=== PATIENT | male | born 1970 | race Caucasian/White ===

== ENCOUNTER 2020-09-01 07:51 | Emergency (ER) | payer BC ==
[~2020-09-01] VITALS: Ht 182.9 cm; Wt 149.7 kg
[~2020-09-01 07:51] MED LIST: ALBU90OI61 INH; Percocet 5-3251 EACH PO; Tessalon Perle100 MG PO
[2020-09-01 08:36] LABS: BASOPHILS ABSOLUTE AUTO 0.01 K/mm3 (0.00-0.23); BASOPHILS PERCENT AUTO 0 % (0-2); EOSINOPHILS PERCENT AUTO 0 % (0-6); Hematocrit 46.2 % (37.0-53.0); Hemoglobin 15.3 g/dL (13.5-17.5); IMMATURE GRAN ABSOLUTE AUTO 0.02 K/mm3 (0.00-0.10); IMMATURE GRAN PERCENT AUTO 0 % (0-1); LYMPHOCYTES ABSOLUTE AUTO 0.77 K/mm3 (0.84-5.20); LYMPHOCYTES PERCENT AUTO 12 % (21-46); MONOCYTES ABSOLUTE AUTO 0.34 K/mm3 (0.16-1.47); MONOCYTES PERCENT AUTO 5 % (4-13); Mean Corpuscular HGB 29.9 pg (26.0-34.0); Mean Corpuscular HGB Conc 33.1 g/dL (31.5-36.5); Mean Corpuscular Volume 90 fL (80-100); NEUTROPHILS ABSOLUTE AUTO 5.49 K/mm3 (1.96-9.15); NEUTROPHILS PERCENT AUTO 83 % (41-73); Platelet Count 176 K/mm3 (150-400); RDW Coefficient Variation 12.9 % (11.7-14.2); RDW Standard Deviation 42.7 fL (35.1-46.3); Red Blood Cell Count 5.12 M/mm3 (4.30-5.90); White Blood Cell Count 6.63 K/mm3 (4.00-11.30)
[2020-09-01 08:55] LABS: Anion Gap 6 mmol/L (6-16); Blood Urea Nitrogen 10 mg/dL (8-24); Bun/Creatinine Ratio 11.4 (12.0-20.0); CO2, Blood 26 mmol/L (21-32); Calcium, Blood 8.4 mg/dL (8.5-10.1); Chloride, Blood 105 mmol/L (98-108); Creatinine, Blood 0.87 mg/dL (0.60-1.20); Glomerular Filtration Rate >60 (60-); Glucose, Blood 96 mg/dL (70-99); Potassium, Blood 3.6 mmol/L (3.5-5.5); Sodium, Blood 137 mmol/L (136-145)
[2020-09-01 09:12] LABS: Influenza A, PCR NEGATIVE (NEGATIVE); Influenza B, PCR NEGATIVE (NEGATIVE); Resp Syncytial Virus, PCR NEGATIVE (NEGATIVE)
[2020-09-01 09:13] LABS: SARS-Cov-2 (COVID-19) PCR, MMC POSITIVE (NEGATIVE)
[2020-09-01] MEDS ORDERED: LEVO750 PO (09:42)
== END 2020-09-01 09:53 | disposition home or self-care (01) ==
LOC: ER 07:51
PROVIDERS: Emergency Medicine
DX: U07.1 COVID-19 (principal); R91.8 Other nonspecific abnormal finding of lung field; I10 Essential (primary) hypertension; E78.00 Pure hypercholesterolemia, unspecified; Z79.899 Other long term (current) drug therapy
CPT/HCPCS: 0241U; 36415; 71045; 80048; 85025; 93005; 93010; 99285-25

== ENCOUNTER 2020-09-03 10:01 | Inpatient (IN) | payer BC ==
[~2020-09-03] VITALS: Ht 182.9 cm; Wt 145.1 kg
[~2020-09-03 10:01] MED LIST changes: +LEVO750 PO
[2020-09-03 11:09] LABS: BASOPHILS ABSOLUTE AUTO 0.01 K/mm3 (0.00-0.23); BASOPHILS PERCENT AUTO 0 % (0-2); EOSINOPHILS PERCENT AUTO 0 % (0-6); Hemoglobin 15.7 g/dL (13.5-17.5); IMMATURE GRAN ABSOLUTE AUTO 0.06 K/mm3 (0.00-0.10); IMMATURE GRAN PERCENT AUTO 1 % (0-1); LYMPHOCYTES ABSOLUTE AUTO 0.63 K/mm3 (0.84-5.20); LYMPHOCYTES PERCENT AUTO 7 % (21-46); MONOCYTES ABSOLUTE AUTO 0.46 K/mm3 (0.16-1.47); MONOCYTES PERCENT AUTO 5 % (4-13); Mean Corpuscular HGB 29.9 pg (26.0-34.0); Mean Corpuscular HGB Conc 33.4 g/dL (31.5-36.5); Mean Corpuscular Volume 90 fL (80-100); Mean Platelet Volume 9.6 fL (9.1-12.4); NEUTROPHILS PERCENT AUTO 86 % (41-73); Platelet Count 240 K/mm3 (150-400); RDW Coefficient Variation 12.7 % (11.7-14.2); RDW Standard Deviation 41.9 fL (35.1-46.3); Red Blood Cell Count 5.25 M/mm3 (4.30-5.90); White Blood Cell Count 8.56 K/mm3 (4.00-11.30)
[2020-09-03 11:31] LABS: Alanine Aminotransfer (ALT/SGP 168 U/L (12-78); Albumin/Globulin Ratio 0.6 (0.8-1.8); Alk Phos 141 U/L (50-136); Anion Gap 5 mmol/L (6-16); Aspartate Aminotrans (AST/SGOT 136 U/L (12-37); Bilirubin, Total 1.3 mg/dL (0.1-1.0); Blood Urea Nitrogen 16 mg/dL (8-24); Bun/Creatinine Ratio 17.2 (12.0-20.0); CO2, Blood 29 mmol/L (21-32); Calcium, Blood 8.5 mg/dL (8.5-10.1); Chloride, Blood 102 mmol/L (98-108); Creatinine, Blood 0.93 mg/dL (0.60-1.20); Globulin, Blood 5.3 g/dL (2.2-4.0); Glomerular Filtration Rate >60 (60-); Glucose, Blood 104 mg/dL (70-99); Potassium, Blood 3.6 mmol/L (3.5-5.5); Sodium, Blood 136 mmol/L (136-145); Total Protein, Blood 8.3 g/dL (6.4-8.2); Troponin I <0.015 ng/mL (0.000-0.040)
--- NOTE | 2020-09-03 14:43 | NUR ---
PT ARRIVED TO ROOM 1 VIA GURNEY FROM ER. REPORT OBTAINED, PT ABLE TO TRANSFER TO BED INDEP, A/OX3, PLEASANT AND COOPERATIVE WITH CARE, FOLLOWS COMMANDS WELL, DENIES PAIN, LUNGS ARE DIM T/O, RESP EVEN AND UNLABORED, NO COUGH NOTED, HRR, TELE IN PLACE RUNNING SR PER MONITOR, SEE STRIP, NO EDEMA NOTED, PPP+2, CAP REFILL <3SEC, VS STABLE, AFEBRILE, IV SITE IS CLEAR AND PATENT, BTX4, ABD FLAT SOFT NONTENDER, VOIDS WITHOUT DIFF, SKIN C/W/D, MAEW, NAVDEEP, ORIENTED TO ROOM LAYOUT AND CALL SYSTEM, CALL LIGHT IN REACH.
--- NOTE | 2020-09-03 19:07 | NUR ---
PT STOOD TO VOID VIA URINAL, HE CALLED NURSE IN HE IS WORKING TO BREATH AND SATS ARE 84%, TURNED O2 UP, AND OBTAINED A HIGH FLOW, TOOK A LONG TIME TO COME UP, ENDED UP ON 10 LITERS, AND LAYING ON HIS SIDE. 92% AT THIS TIME. DID CALL DR. DICK, NO NEW ORDERS, PT STATES HE'S DOING OK NOW. CALL LIGHT IN REACH.
--- NOTE | 2020-09-03 20:50 | NUR ---
CODE STATUS SPOKE W PT REGARDING CODE STATUS AND THE PT SAID HE WANTS TO BE A FULL CODE AND FAR INTUBATION PT STATED THAT "IF A TUBE DOWN MY THROAT IS WHAT IT TAKES TO SURVIVE THEN YES I WANT TO BE INTUBATED". I ASKED THE PT IF HE WANTS COMPRESSIONS, MEDS AND INTUBATION AND HE SAID "YES I WANT EVERYTHINGBUT I HOPE IT DOESNT COME TO THAT". PT'S O2 SATS AT 89 SO O2 INCREASED FROM 10 TO 12 ON THE NM AGUSTINA LORENZA,WCTM.
--- NOTE | 2020-09-04 05:06 | NUR ---
MEDICAL BILLING CLERK SUMMARY PT SLEPT PRONE FOR MOST OF THE SHIFT ON 12L HIGH FLOW NC HOWEVER AFTERTHE PT ROLLED OVER FOR THE VEGETABLE LOADER HE DECLINED INTO THE MID 80'S SO ORDER FOR AIRVO WAS OBTAINED. VS HAVE BEEN STABLE AND BP HAS BEEN GOOD DESPITE THE PT APPEARING DRY AND NOT WANTING TO DRINK ANY WATER. TELE NSR IN THE 60'S, PT AFEBRILE THIS SHIT. PT DENIED ANY PAIN OR NAUSEA THIS SHIFT. WCTM.
[2020-09-04 06:15] LABS: Hematocrit 45.9 % (37.0-53.0); Hemoglobin 15.4 g/dL (13.5-17.5); Mean Corpuscular HGB Conc 33.6 g/dL (31.5-36.5); Mean Corpuscular Volume 90 fL (80-100); Mean Platelet Volume 9.7 fL (9.1-12.4); Platelet Count 271 K/mm3 (150-400); RDW Coefficient Variation 12.7 % (11.7-14.2); RDW Standard Deviation 42.4 fL (35.1-46.3); Red Blood Cell Count 5.13 M/mm3 (4.30-5.90); White Blood Cell Count 8.95 K/mm3 (4.00-11.30)
[2020-09-04 06:39] LABS: Alanine Aminotransfer (ALT/SGP 263 U/L (12-78); Albumin, Blood 2.9 g/dL (3.4-5.0); Albumin/Globulin Ratio 0.6 (0.8-1.8); Alk Phos 163 U/L (50-136); Anion Gap 5 mmol/L (6-16); Aspartate Aminotrans (AST/SGOT 173 U/L (12-37); Bilirubin, Total 2.1 mg/dL (0.1-1.0); Blood Urea Nitrogen 17 mg/dL (8-24); Bun/Creatinine Ratio 19.4 (12.0-20.0); CO2, Blood 29 mmol/L (21-32); Calcium, Blood 8.8 mg/dL (8.5-10.1); Chloride, Blood 103 mmol/L (98-108); Creatinine, Blood 0.88 mg/dL (0.60-1.20); Globulin, Blood 5.2 g/dL (2.2-4.0); Glomerular Filtration Rate >60 (60-); Glucose, Blood 104 mg/dL (70-99); Potassium, Blood 4.1 mmol/L (3.5-5.5); Sodium, Blood 137 mmol/L (136-145); Total Protein, Blood 8.1 g/dL (6.4-8.2)
--- NOTE | 2020-09-04 08:00 | NUR ---
pt laying in bed on his back, sats are above 90%, he is laboring to breath, a/ox3, pleasant and cooperative with care, follows commands well, denies pain, just sob, states he got some sleep last night, lungs are very dim t/o, resp even and labored, is speaking in broken sentences, he is currently on airvo at 50liters, he reports an occ nonproductive cough, hrr, tele in place running sr per montior, rate in the 70's, voids dark taylor urine, skin clear, but cool to touch, maew, weak, jackie, encouraged to prone, he did eat a little breakfast, call light in reach.
--- NOTE | 2020-09-04 12:14 | NUR ---
pt proned all morning, sat him up for lunch, sats were in the high 90's while proning, dropped to the high 80's while eating, denies pain, complaints or needs, call light in reach.
--- NOTE | 2020-09-04 13:07 | NUR ---
will be moving pt to icu per Dr. Aguilar, informed pt. gave report to Ebony PENNINGTON. she will be bringing a bed to move him with.
--- NOTE | 2020-09-04 13:45 | NUR ---
TRANSFER PT FROM PCU 1. DX- COVD 19 WITH INCREASED O2 REQUIREMENTS AND INCREASED WOB. PT IS A&OX4. HE DENIES PAIN. RR 40'S AND PT USING ACCESSORY MUSCLES TO BREATH. SATS DOWN TO 85% WITH MINIMAL EXERTION. PT PLACED ON 15 LITERS NONREBREATHER FOR TRANSFER. PT STATES THAT HIS WOB IS IMPROVED SOME WITH THE MASK VS. THE AIRVO. WILL MAKE PT NPO FOR NOW DUE TO RESPIRATORY DISTRESS. DR. CONNOR UPDATED TO PT STATUS AND CURRENT VS. ORDERS GIVEN FOR BIPAP, PRECEDEX DRIP, STAT CH1V, AND BOYKIN CATHETER INSERTION.
[2020-09-04 14:13] LABS: Source, Urine Catheter
[2020-09-04 14:25] LABS: Appearance, Urine Clear (Clear); Blood, Urine Neg (Neg); Color, Urine Yellow (P-Yellow); Glucose Qualitative, Urine Neg (Neg); Ketones, Urine Neg (Neg); Leukocyte Esterase, Urine 1+ (Neg); Nitrite, Urine Neg (Neg); Protein, Urine 2+ (Neg); Specific Gravity, Urine 1.015 (1.003-1.022); Urobilinogen, Urine 3+ (Normal)
--- NOTE | 2020-09-04 14:35 | NUR ---
PT RESTING QUIETLY ON BIPAP 14/8-FIO2 70% RR RR 36 TO 40'S. SATS 94-96% PRECEDEX DRIP TITRATED UP TO 0.7 MCG/KG/MIN.
[2020-09-04 14:49] LABS: Bilirubin, Urine 1+ (Neg)
[2020-09-04 14:50] LABS: Bacteria Not Seen /hpf; Red Blood Cells, Urine 0-2 /hpf (0-2); Squamous Epithelial Cells Not Seen /hpf (Few); White Blood Cells, Urine 0-2 /hpf (0-5)
--- NOTE | 2020-09-04 15:10 | NUR ---
PT CALLED RN STATING "THIS THING IS KICKING MY ASS!" REFERRING TO BIPAP. UPON ENTRY TO ROOM. PT RESPIRATORY RATE 50'S. SBP 80'S. NS BOLUS INITIATED. PRECEDEX DRIP TO 1.4 MCG/KG/MIN. BIPAP ADJUSTED TO 10/5-TITRATED FIO2 TO 80% TO KEEP SATS >90%. MED WITH ATIVAN 2 MG IVP X [address] CONNOR AWARE. PICC LINE REQUESTED.
--- NOTE | 2020-09-04 15:40 | NUR ---
RESPIRATORY RATE 60'S. PT GRUNTING/MOANING AND USING ACCESSORY MUSCLES TO BREATHE. FIO2 TITRATED UP TO 100% TO KEEP SATS>90% PICC LINE INSERTION INITIATED.
--- NOTE | 2020-09-04 15:54 | NUR ---
PT SOMULENT. PRECEDEX TITRATED DOWN TO 0.7 MCG/KG/MIN. BIPAP 12/8 FIO2 100% RR 60'S. PT REMAINS IN SEVERE RESPIRATORY DISTRESS.
--- NOTE | 2020-09-04 18:00 | NUR ---
PICC LINE SUCCESSFULLY PLACED. DR. CONNOR SUMMONED TO BEDSIDE FOR RSI @ 1616. PT CONTINUES IN SEVERE RESPIRATORY DISTRESS. PT SOMULENT, NOT FOLLOWING COMMANDS. RR 60'S. PT WAS GIVEN A TOTAL OF 15 MG OF VERSED, 150 MG PROPOFOL IVP-FOLLOWED BY PROPOFOL DRIP@ 50 MCG/KG/MIN, AND ROCURONIUM 50 MG IVPX1 DURING RSI. 8.0 ETT PLACED 27 @ TEETH.PT BEGAN VOMITING WHEN LARYNGEAL SCOPE PLACED. YANKEUR SUCTION DONE IMMEDIATELY, BUT STILL CONCERN FOR POSSIBLE ASPIRATION. PT RESPIRATIONS NOT SYNCHRONIZED WITH VENTILATOR.(1700) NIMBEX DRIP INTIATED @ 1.5 MCG/KG/MIN TO4 4/4 PRIOR TO INITIATING PARALYTIC. BIS MONITOR PLACED AND BIS TRENDING 40'S. OGT PLACED AND BOTH ETT AND OGT PLACEMENTS CONFIRMED BY XRAY. THE ETT WAS REPOSITIONED TO 26 @ TEETH PER ORDER. VENT: AC 18, TV 500, PEEP 12, FIO2 80% AND SATS 100%. SPUTUM SPECIMEN SENT. SUCTION PRODUCTIVE OF MODERATE AMOUNT OF THICK, IRVIN SPUTUM. BOYKIN OUTPUT IMPROVED SINCE PT RECEIVED 2 NS FLUID BOLUSES. T MAX 100.7. ECG REMAINS SR. SBP TRENDING 100-110'S. LEVOPHED DRIP IS AVAILABLE AND ON STANDBY IF NEEDED. PT SPOUSE WAS NOTIFIED BY NURSING SHEET HANGER.
[2020-09-04 18:13] LABS: PCO2 Arterial 43.7 mmHg (35-45); PO2 Arterial 150 mmHg (80-100); pH Blood Arterial 7.35 (7.35-7.45)
--- NOTE | 2020-09-04 19:04 | NUR ---
ABG RESULTS REVIEWED-FIO2 DECREASED TO 60%-SPO2 CONTINUES 100% WILL REPORT TO ONCOMING SHIFT.
--- NOTE | 2020-09-04 19:47 | NUR ---
ASSUMED PT CARE FROM GORGE MEDINA PT INTUBATED, SEDATED, AND PARALYZED. VENT AC 18, VT 500, PEEP 12, FIO2 60%; BIOX 100%; THEREFORE, TITRATED FIO2 DOWN TO 50%. PROPOFOL AT 50MCG/KG/MIN, PRECEDEX AT 0.7 MCG/KG/HR WITH BIS OF 40. NIMBEX AT 1.5 MCG/KG/MIN WITH TRAIN OF FOUR 4/4. NSR WITH HR 60'S; BP'S STABLE WITH SYSTOLIC 140'S. PICC TO RIGHT UPPER ARM. MIDLINE TO LEFT UPPER ARM. 20G TO LEFT AC. NS INFUSING AT 100MLS/HR AND ALBUMIN ALSO INFUSING AT 100MLS/HR. OG HOOKED TO LIS WITH SCANT AMOUNT OF THIN BROWN CONTENTS NOTED TO CANISTER. TEMP BOYKIN CATHETER IS PATENT AND DRAINING CLEAR, ANDERS COLORED URINE TO GRAVITY. BILATERAL SOFT WRIST RESTRAINTS ARE NOT ON AT THIS TIME D/T PT BEING PARALYZED. WILL CONTINUE TO MONITOR.
[2020-09-05 04:40] LABS: BASOPHILS ABSOLUTE AUTO 0.01 K/mm3 (0.00-0.23); BASOPHILS PERCENT AUTO 0 % (0-2); EOSINOPHILS PERCENT AUTO 0 % (0-6); Hematocrit 42.2 % (37.0-53.0); Hemoglobin 13.8 g/dL (13.5-17.5); IMMATURE GRAN ABSOLUTE AUTO 0.18 K/mm3 (0.00-0.10); IMMATURE GRAN PERCENT AUTO 2 % (0-1); LYMPHOCYTES ABSOLUTE AUTO 0.67 K/mm3 (0.84-5.20); LYMPHOCYTES PERCENT AUTO 7 % (21-46); MONOCYTES PERCENT AUTO 6 % (4-13); Mean Corpuscular HGB 29.8 pg (26.0-34.0); Mean Corpuscular HGB Conc 32.7 g/dL (31.5-36.5); Mean Corpuscular Volume 91 fL (80-100); Mean Platelet Volume 9.8 fL (9.1-12.4); NEUTROPHILS ABSOLUTE AUTO 8.84 K/mm3 (1.96-9.15); NEUTROPHILS PERCENT AUTO 86 % (41-73); Platelet Count 259 K/mm3 (150-400); RDW Coefficient Variation 12.6 % (11.7-14.2); Red Blood Cell Count 4.63 M/mm3 (4.30-5.90)
[2020-09-05 05:09] LABS: Alanine Aminotransfer (ALT/SGP 251 U/L (12-78); Albumin/Globulin Ratio 0.7 (0.8-1.8); Alk Phos 145 U/L (50-136); Anion Gap 8 mmol/L (6-16); Aspartate Aminotrans (AST/SGOT 112 U/L (12-37); Bilirubin, Indirect 0.8 mg/dL (0.1-0.7); Bilirubin, Total 1.8 mg/dL (0.1-1.0); Blood Urea Nitrogen 11 mg/dL (8-24); Bun/Creatinine Ratio 15.3 (12.0-20.0); CO2, Blood 25 mmol/L (21-32); Calcium, Blood 8.1 mg/dL (8.5-10.1); Chloride, Blood 109 mmol/L (98-108); Creatinine, Blood 0.72 mg/dL (0.60-1.20); Globulin, Blood 4.3 g/dL (2.2-4.0); Glomerular Filtration Rate >60 (60-); Glucose, Blood 176 mg/dL (70-99); Phosphorus, Blood 2.2 mg/dL (2.5-4.9); Potassium, Blood 3.9 mmol/L (3.5-5.5); Sodium, Blood 142 mmol/L (136-145); Total Protein, Blood 7.3 g/dL (6.4-8.2)
--- NOTE | 2020-09-05 06:11 | NUR ---
END OF SHIFT SUMMARY PT REMAINS INTUBATED, SEDATED, AND PARALYZED. VENT SETTINGS AC 18, VT 500, PEEP 12, FIO2 30% WITH BIOX 96% NIMBEX REMAINS AT 1.5MCG/KG/MIN WITH TRAIN OF FOUR 4/4. PROPOFOL AT 50MCG/KG/MIN AND PRECEDEX AT 0.7 MCG/KG/HR WITH BIS OF 40. PT REMAINS OUT OF RESTRAINTS. LUNG SOUNDS ARE CLEAR T/O, BUT DIMINISHED IN THE BASES. NSR WITH HR 70'S. BP'S STABLE, SEE FLOWSHEET. OG REMAINS TO LIS WITH THIN BROWN CONTENTS NOTED IN CANISTER. NS INFUSING AT 100MLS/HR. GOOD URINE OUTPUT THIS SHIFT. TEMP BYOKIN CATHETER IS PATENT AND DRAINING TO GRAVITY; PT REMAINS AFEBRILE THIS SHIFT. CALLED AND UPDATED AROUND 2200; VERY APPRECIATIVE OF UPDATE AND REQUESTED THAT IF I CAME ACROSS THE PT'S PHONE TO ACCESS HIS MUSIC PLAYLIST AND PLAY MUSIC FOR HIM; MUSIC IS CURRENTLY ON AND PLAYING PER 'S REQUEST. WILL CONTINUE TO MONITOR UNTIL REPORT IS HANDED OFF TO ONCOMING RN.
--- NOTE | 2020-09-05 08:15 | NUR ---
ASSESSMENT- PT SEDATED AND PARALYZED, ORALLY INTUBATED, TOLERATING VENT SETTINGS. PROPFOL AT 50 MCG/KG/MIN, PRECEDEX AT 0.7 MCG/KG/HR, NIMBEX PARALYTIC AT 1.5 MCG/KG/MIN DECREASED TO 1. ADDED BILATERAL WRIST RESTRAINTS TO PREVENT EXTUBATION. PERRL. APICAL REGULAR, BP STABLE. COLOR WNL, SKIN W/D. RIGHT ARM PICC DI, LEFT ARM POWER GLIDE DI, LAC IV DI. OGT TO LIS WITH SCANT BROWN DRAINAGE INTACT. UO VIA BOYKIN. REPOSITIONED. ENHANCED AIRBORNE PRECAUTIONS. NS AT 100 CC/HR.
--- NOTE | 2020-09-05 08:58 | NUR ---
DR. CONNOR HERE-UPDATED. PLANS TO D/C PARALYTIC, BIS MONITOR ON-50'S.
--- NOTE | 2020-09-05 09:59 | NUR ---
COUGHING, REPOSITIONED. RX WITH ATIVAN. SEDATE NOW. VSS
--- NOTE | 2020-09-05 12:34 | NUR ---
VSS. DECREASED PROPOFOL TO 40 MCG/KG/MIN. REPOSITIONED. SR. BP STABLE.
--- NOTE | 2020-09-05 13:29 | NUR ---
SLEEPING WITHOUT COMPLAINTS. VSS. HEARTRATE STABLE 50'S
--- NOTE | 2020-09-05 14:15 | NUR ---
SCANT OGT RESIDUAL. POSITION VERIFIED BY DR. CONNOR PER XRAY. VITAL HIGH PROTEIN INITIATED. ATTEMPT TO DECREASE PROPOFOL TO 35 MCG/KG/MIN, TACHYPNEIC, RESP RATE 36 BPM, BACK TO 40 MCG/KG/MIN WITH RR 24 BPM.
--- NOTE | 2020-09-05 16:16 | NUR ---
VSS. ABLE TO DECREASE PROPFOL TO 35 MCG/KG/MIN. BATH, LINEN CHANGE, TOLERATED TURNING.
--- NOTE | 2020-09-05 17:50 | NUR ---
PROPOFOL DECREASED TO 25 MCG/KG/MIN. PT ABLE TO NOD HEAD APPROPRIATELY TO VERBAL COMMAND, DENIES PAIN OR SOB. CALM. TOLERATING VENT. VSS. PRECEDEX AT 0.7 MCG/KG/MIN. PICC INTACT. REPOSITIONED.
--- NOTE | 2020-09-05 21:00 | NUR ---
ASSUMED PT CARE AT 1915 FROM [facility], RN PT INTUBATED AND SEDATED. VENT SETTINGS: AC 18, VT 500, PEEP 8, FIO2 30%, BIOX >90%, RESP RATE 20'S. PROPOFOL AT 30MCG/KG/MIN AND PRECEDEX AT 0.7 MCG/KGHR. PT RESPONDS TO VERBAL STIMULUS. ATTEMPTS TO OPEN EYES; HOWEVER, UNABLE AT THIS TIME. FOLLOWS COMMANDS BY SQUEEZING HANDS AND NODS HEAD YES/NO TO QUESTIONS APPROPRIATELY. MEDICATED WITH 50MCG OF FENTANYL D/T PT NODDING HEAD "YES" TO PAIN. LUNG SOUNDS REMAIN CLEAR T/O, BUT DIMINISHED IN THE BASES. NSR WITH HR 70'S; BP'S STABLE, SEE FLOWSHEET. AFEBRILE. VITAL HIGH PROTEIN INFUSING AT 25CC/HR; NO RESIDUALS. GOAL IS 35CC/HR; WILL INCREASE AT 2200. BOYKIN CATHETER PATENT AND DRAINING CLEAR ANDERS COLORED URINE TO GRAVITY. UPDATED ON PT'S STATUS.
--- NOTE | 2020-09-05 21:16 | NUR ---
CALL OUT TO DR. CONNOR REQUESTED SOMETHING LONGER ACTING FOR PAIN. PER PT RECENTLY STARTED ON OXYCODONE 5MG NEEDED FOR HEADACHE AND GENERALIZED BACK PAIN. ORDERS FOR 5MG BID WHILE PT IS INTUBATED; WILL NEED CHANGED TO PRN ONCE EXTUBATED.
[2020-09-06 04:23] LABS: Anion Gap 7 mmol/L (6-16); Blood Urea Nitrogen 10 mg/dL (8-24); Bun/Creatinine Ratio 16.8 (12.0-20.0); CO2, Blood 26 mmol/L (21-32); Calcium, Blood 8.2 mg/dL (8.5-10.1); Chloride, Blood 111 mmol/L (98-108); Glomerular Filtration Rate >60 (60-); Glucose, Blood 122 mg/dL (70-99); Magnesium, Blood 2.6 mg/dL (1.6-2.4); Phosphorus, Blood 2.2 mg/dL (2.5-4.9); Potassium, Blood 3.5 mmol/L (3.5-5.5); Sodium, Blood 144 mmol/L (136-145)
--- NOTE | 2020-09-06 05:57 | NUR ---
END OF SHIFT SUMMARY PT REMAINS INTUBATED AND SEDATED. VENT SETTINGS AC 18, VT 500, PEEP 8, FIO2 40%, BIOX 93%, RESP RATE 20'S. PROPOFOL AT 30MCG/KG/MIN, PRECEDEX 0.5MCG/KG/HR. PT STILL ABLE TO FOLLOW COMMANDS AND NOD HEAD YES/NO TO QUESTIONS. NS INFUSING AT 100MLS/HR. VITAL HIGH PROTEIN AT GOAL OF 35MLS/HR WITH NO RESIDUALS NOTED. BOYKIN CATH PATENT AND DRAINING CLEAR GREEN/YELLOW URINE TO GRAVITY. WILL CONTINUE TO MONITOR UNTIL REPORT IS HANDED OFF TO ONCOMING RN.
--- NOTE | 2020-09-06 09:26 | NUR ---
PT WAS RESTING WELL ON PREVIOUS VENT AND SEDATION SETTINGS. THEN PT WAS SUCTIONED AND MOVED AND BOTH INC. RR, DEC SATS, AND FIO2 REQUIREMENTS INCREASED. PRECEDEX AND PROPOFOL GTTS INC. NOTED AND ATIVAN AND THEN FENTANYL GIVEN IVP AND RR DOWN AND SATS CAME UP NOTED. PT WAS ABLE TO FOLLOW COMMANDS AND MOVES EXTREMETIES WHILE ON UNINTERUPTED SEDATION. SEDATION WAS INC AND PT RETURNED TO RESTING.
--- NOTE | 2020-09-06 12:13 | NUR ---
FENTANYL IVP GIVEN WH PT RR AND HR INCREASING. THE INC. WERE NOT DRAMATIC THIS AM WHEN ATIVAN AND FENTANYL WERE GIVEN WITH RELIEF. WILL FOLLOW FOR NOW AND SL INC OF PROPOPOL GTT TO 45 MCG. MAY CONSIDER ADDITIONAL ATIVAN ALSO.
--- NOTE | 2020-09-06 18:26 | NUR ---
FAMILY HAS JUST LEFT FOR THE EVENING. PT HAS TOLERATED MOVING, ORAL AND ET SX BETER WITH ATIVAN AND FENTANYL AND HAVE NOT NEEDED TO INC PRECEDEX OR PROPOFOL GTT'S FURTHER. VS NOTED. I/O NOTED AND E-LYTE PROTOCOL OBTAINED. HR, SATS, RR HAVE REMAINED WNL WITH THE ABOVE SEDATION.
--- NOTE | 2020-09-06 20:08 | NUR ---
PATIENT REMAINS INTUBATED AND SEDATED. VENT SET AT AC 18, TV 500, PEEP 8, FIO2 50% PATIENT GRIMACING AND RESP UP TO 32 WITH SLIGHT STIMULI, PRECEDEX 0.8 MCG AND PROPOFOL 45 MCG FOR SEDATION. OG IN PLACE WITH TUBE FEEDING VITAL HIGH PROTEIN AT GOAL RATE OF 35 CC/HR.
[2020-09-07 05:26] LABS: Hematocrit 41.7 % (37.0-53.0); Hemoglobin 14.1 g/dL (13.5-17.5); Mean Corpuscular HGB 29.9 pg (26.0-34.0); Mean Corpuscular HGB Conc 33.8 g/dL (31.5-36.5); Mean Corpuscular Volume 88 fL (80-100); Mean Platelet Volume 9.7 fL (9.1-12.4); NRBC ABSOLUTE 0.02 K/mm3 (0.00-0.02); NRBC Auto 0.2 /100 WBC (0.0-0.2); Platelet Count 338 K/mm3 (150-400); RDW Coefficient Variation 12.9 % (11.7-14.2); RDW Standard Deviation 42.3 fL (35.1-46.3); Red Blood Cell Count 4.72 M/mm3 (4.30-5.90); White Blood Cell Count 10.26 K/mm3 (4.00-11.30)
[2020-09-07 05:44] LABS: Anion Gap 9 mmol/L (6-16); Blood Urea Nitrogen 14 mg/dL (8-24); Bun/Creatinine Ratio 22.8 (12.0-20.0); CO2, Blood 27 mmol/L (21-32); Calcium, Blood 8.3 mg/dL (8.5-10.1); Chloride, Blood 108 mmol/L (98-108); Creatinine, Blood 0.61 mg/dL (0.60-1.20); Glomerular Filtration Rate >60 (60-); Glucose, Blood 104 mg/dL (70-99); Magnesium, Blood 2.3 mg/dL (1.6-2.4); Phosphorus, Blood 2.5 mg/dL (2.5-4.9); Potassium, Blood 3.6 mmol/L (3.5-5.5); Sodium, Blood 144 mmol/L (136-145)
[2020-09-07 06:14] LABS: BASOPHILS PERCENT MAN 1 % (0-2); EOSINOPHILS PERCENT MAN 0 % (0-6); LYMPHOCYTES % ATYPICAL MANUAL 1 % (0-0); LYMPHOCYTES ABSOLUTE MAN 1.64 K/mm3 (0.84-5.20); LYMPHOCYTES PERCENT MAN 15 % (21-46); METAMYELOCYTE PERCENT MAN 2 % (0-0); MONOCYTES ABSOLUTE MAN 0.61 K/mm3 (0.16-1.47); MONOCYTES PERCENT MAN 6 % (4-13); NEUTROPHILS ABSOLUTE MAN 7.69 K/mm3 (1.96-9.15); SEG NEUTROPHILS PERCENT MAN 75 % (41-73); TOTAL CELLS COUNTED 100
--- NOTE | 2020-09-07 06:46 | NUR ---
SUMMARY PATIENT REMAINS INTUBATED AND SEDATED, VENT REMAINS AC 18, TV 500, PEEP 8, FIO2 50% OCCASIONAL COUGH WITH SCANT CLEAR SPUTUM. PROPOFOL 45 MCG, PRECEDEX 0.7 MCG. ATIVAN AND FENTANYL NEEDED. OPENS EYES AND SLIGHT MOVEMENT SEEN TO ARMS WHEN COUGHING. NOT FOLLOWING DIRECTIONS WHEN AWAKE. OG IN PLACE WITH VITAL HP AT GOAL RATE OF 35 CC/HR WITH MIN RESIDUALS T/O NIGHT.
--- NOTE | 2020-09-07 08:31 | NUR ---
CARE OF PT ASSUMED AT 0700. PT SEDATED ON PROPOFOL AT 45MCG, PRECEDEX AT 0.7MCG FOR MECG VENT. ATIVAN 2MG GIVEN IVP THIS AM FOR COUGHING/STACKING ON VENT CAUSING SATS TO DROP TO 84%. PT'S SATS RECOVERED >90% WITHIN 2MIN OF GIVING ATIVAN. LARGE AMT OF THICK IRVIN SECRETIONS SX'D FROM ETT. PT NOT GIVEN SED VAC AT THIS TIME D/T DESATURATION W STIMULATION/COUGHING THIS AM.
--- NOTE | 2020-09-07 10:17 | NUR ---
PT DESATURATED TO 84% AFTER TURNING PT. PT'S SATS DID NOT RECOVER, MINIMAL SECRETIONS SUCTIONED. FIO2 SLOWLY TITRATED UP TO 70%. SATS NOW 92%. RT NOTIFIED.
--- NOTE | 2020-09-07 12:27 | NUR ---
PT DID NOT TOLERATE 1200 TURN. RESP INCREASED TO 50-60, SATS DECREASED TO 84%. FENT 75MCG, ATIVAN 2MG GIVEN FOR INTOLERANCE TO VENT. RT AT BEDSIDE. PT NOW 90% ON 65% FIO2.
--- NOTE | 2020-09-07 12:42 | NUR ---
FIO2 INCREASED TO 755 FOR SATS 87%. SATS NOW 91%.
--- NOTE | 2020-09-07 14:47 | NUR ---
DR SALDAÑA INCREASED PEEP TO 12, DECREASED FIO2 TO 60% AT 1400. PT TOLERATED 1400 TURN MUCH BETTER. PT'S AT BEDSIDE; DR SALDAÑA GAVE PT'S UPDATE.
--- NOTE | 2020-09-07 16:25 | NUR ---
PT TURNED, BACK/BOTTOM VISUALIZED. SKIN INTACT. MEPILEX PLACED ON COCCYX PREVENTATIVELY. PT TOLERATED TURN WELL. NO OTHER CAHNGES.
--- NOTE | 2020-09-07 19:25 | NUR ---
PT TOLERATED TURNS WELL AFTER PEEP INCREASED TO 12. PT DID NOT REQUIRE ANY ADDITIONAL ATIVAN OR FENANYL AFTER PEEP WAS AJUSTED. PT'S STAYED AT BEDSIDE UNTIL 1800. PT TOLERATED TUBE FEEDINGS, RESIDUALS 5CC. PRECEDEX 0.7MCG AND PROPOFOL 45MCG DOSE REMAIN UNCHANGED.
--- NOTE | 2020-09-07 22:43 | NUR ---
PATIENT REMAINS INTUBATED AND SEDATED. VENT SET AT AC 18, TV 500, PEEP 12, FIO2 60% SUCTIONING SCANT AMT OF CLEAR SPUTUM VIA ETT. PROPOFOL 45 MCG AND PRECEDEX 0.7 MCG FOR SEDATION. OG IN PLACE WITH VITAL HP RUNNING AT GOAL RATE OF 35 CC/HR WITH MIN AMT OF RESIDUAL. UPDATE GIVEN TO PATIENTS AIXA
[2020-09-08 03:53] LABS: Hematocrit 42.4 % (37.0-53.0); Hemoglobin 13.9 g/dL (13.5-17.5); Mean Corpuscular HGB 29.6 pg (26.0-34.0); Mean Corpuscular HGB Conc 32.8 g/dL (31.5-36.5); Mean Corpuscular Volume 90 fL (80-100); Mean Platelet Volume 9.3 fL (9.1-12.4); NRBC ABSOLUTE 0.02 K/mm3 (0.00-0.02); NRBC Auto 0.2 /100 WBC (0.0-0.2); Platelet Count 338 K/mm3 (150-400); RDW Coefficient Variation 13.4 % (11.7-14.2); RDW Standard Deviation 44.9 fL (35.1-46.3); Red Blood Cell Count 4.69 M/mm3 (4.30-5.90); White Blood Cell Count 10.36 K/mm3 (4.00-11.30)
[2020-09-08 04:04] LABS: PCO2 Arterial 40.1 mmHg (35-45); PO2 Arterial 109 mmHg (80-100); pH Blood Arterial 7.44 (7.35-7.45)
[2020-09-08 04:09] LABS: Anion Gap 5 mmol/L (6-16); Blood Urea Nitrogen 18 mg/dL (8-24); Bun/Creatinine Ratio 21.6 (12.0-20.0); CO2, Blood 29 mmol/L (21-32); Calcium, Blood 8.1 mg/dL (8.5-10.1); Chloride, Blood 108 mmol/L (98-108); Creatinine, Blood 0.84 mg/dL (0.60-1.20); Glomerular Filtration Rate >60 (60-); Glucose, Blood 110 mg/dL (70-99); Magnesium, Blood 2.7 mg/dL (1.6-2.4); Phosphorus, Blood 3.3 mg/dL (2.5-4.9); Potassium, Blood 4.2 mmol/L (3.5-5.5); Sodium, Blood 142 mmol/L (136-145)
[2020-09-08 05:37] LABS: BAND PERCENT MAN 1 % (0-8); BASOPHILS PERCENT MAN 0 % (0-2); EOSINOPHILS PERCENT MAN 0 % (0-6); LYMPHOCYTES ABSOLUTE MAN 1.24 K/mm3 (0.84-5.20); LYMPHOCYTES PERCENT MAN 12 % (21-46); METAMYELOCYTE PERCENT MAN 1 % (0-0); MONOCYTES ABSOLUTE MAN 0.72 K/mm3 (0.16-1.47); MONOCYTES PERCENT MAN 7 % (4-13); MYELOCYTE ABSOLUTE MAN 0.51 K/mm3 (0.00-0.00); MYELOCYTE PERCENT MAN 5 % (0-0); NEUTROPHILS ABSOLUTE MAN 7.77 K/mm3 (1.96-9.15); SEG NEUTROPHILS PERCENT MAN 74 % (41-73); TOTAL CELLS COUNTED 100
--- NOTE | 2020-09-08 07:11 | NUR ---
SUMMARY PATIENT REMAINS INTUBATED AND SEDATED. PROPOFOL 45 MCG, PRECEDEX 0.7 MCG FOR SEDATION. VENT REMAINS AC 18, TV 500, PEEP 12, FIO2 60% SUCTIONING SCANT AMT OF CLEAR SECRETIONS. OG IN PLACE WITH VITAL HP AT GOAL RATE OF 35 CC/HR WITH MIN RESIDUALS T/O NIGHT.
--- NOTE | 2020-09-08 10:39 | NUR ---
CARE ASSUMED OF PT AT 0700 THIS AM. PT SEDATED ON PROPOFOL AT 45MCG, PRECEDEX 0.7MCG FOR MECH VENT. VENT SETTINGS REMAIN UNCHANGED FROM LAST NIGHT. AC18/500/60%/PEEP 12. PT TOLERATING TUNRS WELL TODAY COMPARED TO YESTERDAY MORNING. SATS HAVE REMAINED >93%. ETT RETAPED BY RT. PROPOFOL PLACED ON HOLD. PT WAS AROUSABLE WITHIN 5MIN. PT ABLE TO METAL SPRAYER PROTECTIVE COATING HAND TO COMMAND. PT NODDED NO TO PAIN. PROPOFOL TURNED BACK ON AT 35MCG.
--- NOTE | 2020-09-08 11:00 | NUR ---
DR SALDAÑA UPDATED; WILL TITRATE DOWN FIO2 TOLERATED.
--- NOTE | 2020-09-08 11:10 | NUR ---
PT'S AIXA UPDATED VIA PHONE. SHE WILL BE IN TODAY AT 1400.
--- NOTE | 2020-09-08 14:16 | NUR ---
FIO2 DECREASED TO 50% AT 1200. PT TOLERATING WELL, SATS >93%. NO OTHER CHANGES. AT BEDSIDE NOW
--- NOTE | 2020-09-08 16:19 | NUR ---
FIO2 DECREASED TO 45%, SATS 95%. DR SALDAÑA AT BEDSIDE, UPDATING .
--- NOTE | 2020-09-08 17:26 | NUR ---
PROPOFOL DECREASED TO 30MCG AT 1700. PT AROUSES SLIGHTLY. PT NODDED YES TO PAIN. FENTANYL 50MCG GIVEN. PT CONTINUES TO SATURATE WELL ON 45% FIO2.
--- NOTE | 2020-09-08 21:40 | NUR ---
PATIENT REMAINS INTUBATED AND SEDATED ON PROPOFOL 30 MCG AND PRECEDEX 0.7 MCG VENT SET AT AC 18, TV 500, PEEP 12, FIO2 45% SUCTIONING SCANT AMT OF CLEAR SPUTUM VIA ETT. SLIGHT GRIMACE WITH ORAL CARE AND REPOSITIONING. OG IN PLACE WITH VITAL HP AT GOAL RATE OF 35 CC/HR.
[2020-09-09 05:18] LABS: Hematocrit 44.8 % (37.0-53.0); Hemoglobin 14.2 g/dL (13.5-17.5); Mean Corpuscular HGB 29.2 pg (26.0-34.0); Mean Corpuscular HGB Conc 31.7 g/dL (31.5-36.5); Mean Corpuscular Volume 92 fL (80-100); Mean Platelet Volume 9.9 fL (9.1-12.4); NRBC ABSOLUTE 0.02 K/mm3 (0.00-0.02); NRBC Auto 0.2 /100 WBC (0.0-0.2); Platelet Count 341 K/mm3 (150-400); RDW Coefficient Variation 13.4 % (11.7-14.2); Red Blood Cell Count 4.87 M/mm3 (4.30-5.90); White Blood Cell Count 11.88 K/mm3 (4.00-11.30)
[2020-09-09 05:51] LABS: Anion Gap 6 mmol/L (6-16); Blood Urea Nitrogen 24 mg/dL (8-24); Bun/Creatinine Ratio 33.3 (12.0-20.0); CO2, Blood 27 mmol/L (21-32); Calcium, Blood 8.4 mg/dL (8.5-10.1); Chloride, Blood 107 mmol/L (98-108); Creatinine, Blood 0.72 mg/dL (0.60-1.20); Glomerular Filtration Rate >60 (60-); Glucose, Blood 99 mg/dL (70-99); Magnesium, Blood 2.7 mg/dL (1.6-2.4); Phosphorus, Blood 3.1 mg/dL (2.5-4.9); Potassium, Blood 4.5 mmol/L (3.5-5.5); Sodium, Blood 140 mmol/L (136-145)
[2020-09-09 06:17] LABS: BASOPHILS PERCENT MAN 0 % (0-2); EOSINOPHILS ABSOLUTE MAN 0.23 K/mm3 (0.00-0.68); EOSINOPHILS PERCENT MAN 2 % (0-6); LYMPHOCYTES ABSOLUTE MAN 1.78 K/mm3 (0.84-5.20); LYMPHOCYTES PERCENT MAN 15 % (21-46); METAMYELOCYTE ABSOLUTE MAN 0.23 K/mm3 (0.00-0.00); METAMYELOCYTE PERCENT MAN 2 % (0-0); MONOCYTES ABSOLUTE MAN 0.95 K/mm3 (0.16-1.47); MONOCYTES PERCENT MAN 8 % (4-13); MYELOCYTE ABSOLUTE MAN 0.23 K/mm3 (0.00-0.00); MYELOCYTE PERCENT MAN 2 % (0-0); NEUTROPHILS ABSOLUTE MAN 8.43 K/mm3 (1.96-9.15); SEG NEUTROPHILS PERCENT MAN 71 % (41-73); TOTAL CELLS COUNTED 100
--- NOTE | 2020-09-09 06:40 | NUR ---
SUMMARY PATIENT REMAINS INTUBATED AND SEDATED WITH PRECEDEX 0.7 MCG AND PROPOFOL 40 MCG. VENT CONTINUES AC 18, TV 500, PEEP 12, FIO2 45% OCCASIONALLY SUCTIONING THICK IRVIN SPUTUM. TEMP ELEVATED TO 100.4. OG REMAINS IN PLACE WITH VITAL HP AT GOAL RATE OF 35 CC/HR WITH MIN RESIDUALS T/O NIGHT.
--- NOTE | 2020-09-09 08:15 | NUR ---
ASSESSMENT- PT SEDATED WITH PROPOFOL AT 40 MCG/KG/MIN AND PRECEDEX AT 0.7 MCG/KG/HR. NO RESPONSE TO COMMANDS. PERRL. ORALLY INTUBATED, TUBE SECURE. TOLERATING VENT SETTINGS. LUNGS CLEAR. SUCTION CLEAR SECRETIONS. APICAL REGULAR, NSR. BP STABLE. RIGHT ARM PICC INTACT WITH NS TKO. LEFT ARM POWER GLIDE DI. ABDOMEN LARGE, SOFT. TUBE FEEDING PIVOT HIGH PROTEIN AT GOAL 25 CC/RH, RESIDUAL 50 CC REPLACED. NO BM BUT POSITIVE FLATUS. UO VIA BOYKIN ADEQUATE. SCDS ON. REPOSITIONED WITH 2 ASSIST TO TURN TO RIGHT. BILATERAL WRIST RESTRAINTS-EXTUBATION RISK. ENHANCED PRECAUTIONS-POSITIVE COVID.
--- NOTE | 2020-09-09 10:33 | NUR ---
PT WITH STABLE VS. SEDATED, REPOSITIONED TO HIGH LEFT SIDE. SATURATIONS STABLE. CONTINUE TO MONITOR
--- NOTE | 2020-09-09 12:14 | NUR ---
PT REPOSITIONED TO HIGH RIGHT SIDE, AWAKENS TO NAME, NODS HEAD APPROPRIATELY. TOLERATED REPOSITIONING, SATURATIONS STABLE. FIO2 DECREASED TO 45%. MEPILEX TO COCCYX-AREA CLEAN, DRY, NO REDNESS. DENIES ANY PAIN OR NAUSEA.
--- NOTE | 2020-09-09 14:36 | NUR ---
PT REPOSITIONED TO LEFT SIDE. OXYGEN SATURATIONS STABLE. PT'S FAMILY-, DAUGHTER, SON HERE. UPDATED, REVIEWED PLAN OF CARE, QUESTIONS ANSWERED. PT ABLE TO SHAKE HEAD TO QUESTIONS. CONTINUE SEDATION, CALM. VSS
--- NOTE | 2020-09-09 15:28 | NUR ---
VSS. FAMILY REMAINS AT BEDSIDE. CONTINUE TO MONITOR. REPORT TO FLOR PENNINGTON
--- NOTE | 2020-09-09 16:00 | NUR ---
Assumed care from Aisha PENNINGTON. Repositioned patient to right, Oral care. Reduced FiO2 to 35% for sats of 96% and dropped to 94% and stayed there.VSS. See EMR. Changed all suction tubing. Patient on 40 mcg/kg/min Propofol and interacting with family a little bit.
--- NOTE | 2020-09-09 21:20 | NUR ---
ASSUMED PT CARE FROM GORGE WOO AT 1900 PT INTUBATED AND SEDATED. PROPOFOL AT 40MCG/KG/MIN AND PRECEDEX AT 0.7 MCG/KG/HR. VENT AC 18, VT 500, PEEP 10, FIO2 30%. PT ABLE TO NOD HEAD YES/NO TO QUESTIONS. WIGGLES TOES AND SQUEEZES HANDS UPON COMMAND. PT UNABLE TO OPEN EYES; HOWEVER, HE ATTEMPTS TO. TOLERATES ORAL CARES. GOOD STRONG COUGH AND POSITIVE GAG REFLEX. LUNG SOUNDS REMAIN CLEAR T/O AND DIMINISHED IN THE BASES. NSR WITH HR 60'S; BP'S STABLE AT THIS TIME, SEE FLOWSHEET. ABDOMEN IS LARGE AND DISTENDED, FIRM TO PALPATION WITH HYPOACTIVE TONES. NO BM SINCE ADMIT TO UNIT; DSS ADMINISTERED PER ORDERS. WILL ADMINISTER MILK OF MAG TONGIHT AND SEE IF EFFECTIVE. IF NOT EFFECTIVE, WILL PROCEED WITH SUPPOSITORY PER ORDERS. VITAL HIGH PROTEIN REMAINS AT GOAL OF 35MLS/HR; NO RESIDUALS NOTED. CHANGED PICC DRESSING TO RIGHT UPPER ARM; 5CM NOW EXPOSED, 4CM ORIGINALLY EXPOSED; DRESSING IS DRY AND INTACT. MIDLINE TO LEFT UPPER ARM; PATENT. DR. SALDAÑA STATED HE WOULD PERFORM SEDATION VACATION WITH WEAN IN THE MORNING AND NOT TO WORRY ABOUT IT THIS SHIFT D/T PT'S PEEP OF 10. PT HARD TURNED TO THE RIGHT UTILIZING CEILING LIFT.
[2020-09-10 05:15] LABS: Hematocrit 43.6 % (37.0-53.0); Mean Corpuscular HGB 29.8 pg (26.0-34.0); Mean Corpuscular HGB Conc 32.1 g/dL (31.5-36.5); Mean Corpuscular Volume 93 fL (80-100); Mean Platelet Volume 10.1 fL (9.1-12.4); Platelet Count 352 K/mm3 (150-400); RDW Coefficient Variation 13.4 % (11.7-14.2); RDW Standard Deviation 45.6 fL (35.1-46.3)
[2020-09-10 05:26] LABS: Anion Gap 5 mmol/L (6-16); Blood Urea Nitrogen 23 mg/dL (8-24); Bun/Creatinine Ratio 32.6 (12.0-20.0); CO2, Blood 29 mmol/L (21-32); Calcium, Blood 8.4 mg/dL (8.5-10.1); Chloride, Blood 106 mmol/L (98-108); Creatinine, Blood 0.71 mg/dL (0.60-1.20); Glomerular Filtration Rate >60 (60-); Glucose, Blood 101 mg/dL (70-99); Magnesium, Blood 2.5 mg/dL (1.6-2.4); Phosphorus, Blood 3.2 mg/dL (2.5-4.9); Potassium, Blood 4.4 mmol/L (3.5-5.5); Sodium, Blood 140 mmol/L (136-145)
[2020-09-10 05:46] LABS: BAND PERCENT MAN 2 % (0-8); BASOPHILS PERCENT MAN 0 % (0-2); EOSINOPHILS ABSOLUTE MAN 0.23 K/mm3 (0.00-0.68); EOSINOPHILS PERCENT MAN 2 % (0-6); LYMPHOCYTES ABSOLUTE MAN 1.05 K/mm3 (0.84-5.20); LYMPHOCYTES PERCENT MAN 9 % (21-46); METAMYELOCYTE ABSOLUTE MAN 0.35 K/mm3 (0.00-0.00); METAMYELOCYTE PERCENT MAN 3 % (0-0); MONOCYTES ABSOLUTE MAN 1.17 K/mm3 (0.16-1.47); MONOCYTES PERCENT MAN 10 % (4-13); MYELOCYTE ABSOLUTE MAN 0.23 K/mm3 (0.00-0.00); MYELOCYTE PERCENT MAN 2 % (0-0); NEUTROPHILS ABSOLUTE MAN 8.65 K/mm3 (1.96-9.15); SEG NEUTROPHILS PERCENT MAN 72 % (41-73); TOTAL CELLS COUNTED 100
--- NOTE | 2020-09-10 06:48 | NUR ---
END OF SHIFT SUMMARY PT REMAINS INTUBATED AND SEDATED. PROPOFOL NOW UP TO 45MCG/KG/MIN D/T INCREASED COUGHING AND DROPS IN OXYGEN SATURATIONS WITH RESP RATE HIGH 20'S. VENT REMAINS AC 18, VT 500, PEEP 10, FIO2 30%. PRECEDEX AT 0.7MCG/KG/HR. VHP AT GOAL OF 35MLS/HR WITH NO RESIDUALS NOTED THIS SHIFT. PT GIVEN BOTH DOCUSATE SODIUM AND MILK OF MAGNESIA WITH NO RESULTS, WILL NEED SUPPOSITORY FOR BOWEL CARE PROTOCOL. ABDOMEN REMAINS OBESE, FIRM WITH HYPOACTIVE TONES. PT REMAINS IN NSR WITH HR 60'S. REMAINS RESPONSIVE TO VERBAL AND PAINFUL STIMULI; FOLLOWS COMMANDS, AND ABLE TO NOD HEAD YES/NO TO QUESTIONS APPROPRIATELY. LOW GRADE FEVER OF 99.9; FAN PLACED ON PT. WILL CONTINUE TO MONITOR UNTIL REPORT IS HANDED OFF TO ONCOMING RN.
--- NOTE | 2020-09-10 07:15 | NUR ---
Assumed care of pt at 0700. Bedside report received from Sherwin PENNINGTON. Pt sedated with propofol at 45 mcg/kg/min and precedex at 0.7 mcg/kg/hr. Ventilator settings AC 18/500/10/30%. SpO2 90% or greater. HR 80. BP stable. Bilat wrist restraints to prevent self-extubation. Lu catheter in place draining taylor urine. OG tube with feeds and flushes per orders. 10 mL residual measured.
--- NOTE | 2020-09-10 09:51 | NUR ---
SBT / MARTHA SALDANA Plan of care discussed with Dr Higgins. Discussed ventilator settings AC 18/500/10/30%. Provider stated he wanted to do sedation interruption and SBT. Propofol turned off at 0855. Precedex remained infusing at maintained rate 0.7 mcg/kg/hr. SBT started at 0900 with RT Torin. Ventilator PS 10/5 and 30% FiO2. At beginning of SBT, HR 62, RR 30-35. Tidal volumes 450-500 mL. HR slowly decreased to 50s, sometimes touching down to 48. Pt started to become alert, nodding his head when his name was stated. Eyes open, but with upward gaze. Pt able to track staff as they move across room. Pt had mild coughing. Pt had 8 second pause and this RN and RT were unable to palpate pulse when QRS returned. Precedex stopped. Martha saldana called at 0903 and shortly afterwards, pulse returned and pt became responsive again. Pt without pulse for approx 20 seconds. No CPR initiated. aircraft maintenance manager and Dr Higgins in room. Pt nods head "yes" when asked if he felt something in his chest. SBT resumed with Dr Higgins in room. Pt looked visible uncomfortable and required FiO2 to be titrated upwards. Dr Higgins asks patient if he feels okay, pt nods head "no". When asked if he is feeling short of breath, pt nods head "yes". SBT terminated and pt placed back on AC 18/500/10/50%. Pt's spouse updated by Elly PENNINGTON. Pt's spouse states that historically, pt has vagal response with coughing and has had extensive outpatient workup for this issue.
--- NOTE | 2020-09-10 13:20 | NUR ---
Pt sedated with propofol at 55 mcg/kg/min. Requiring IV push ativan and fentanyl to maintain sedation in absence of precedex. Pt calm and cooperative with care when less sedated, however coughs against ventilator. Ventilator settings at this time are AC 18/500/10/40%. Respiratory rate 22. SpO2 95%. SR per monitor. BP stable. TF adjusted per new orders.
--- NOTE | 2020-09-10 17:00 | NUR ---
Pt's spouse and children in to visit. Family friend, Lila, in to visit. Questions answered to satisfaction. Sedation stable at 60 mcg/kg/min propofol with fentanyl and ativan pushes as needed. Ventilator settings AC 18/500/8/40%. SpO2 90% or greater. Minimal secretions from ETT. SR per monitor BP stable.
--- NOTE | 2020-09-10 19:25 | NUR ---
SUMMARY Remains sedated with propofol at 60 mcg/kg/min. Ventilator settings AC 18/500/8/40%. SpO2 90% or greater. No acute changes this afternoon. Clarified bowel care with Dr Higgins. Provider okay with nursing staff giving suppository or may give lactulose. SR per monitor, no additional events after pause this AM. OG tubes with continuous feeds per new orders. Maximum residual measured was 10 mL. Report given to oncoming RNSherwin.
--- NOTE | 2020-09-10 20:53 | NUR ---
ASSUMED PT CARE AT 1915 FROM GORGE BARGG PT REMAINS INTUBATED AND SEDATED. VENT SETTINGS AC 18, VT 500, PEEP 8, FIO2 40%; RESP RATE 20'S. PROPOFOL AT 60MCG/KG/MIN UPON ASSUMPTION OF CARE; TITRATED DOWN TO 55MCG/KG/MIN. PT DIFFICULT TO AROUSE AT THIS TIME; HOWEVER, POSITIVE GAG AND COUGH REFLEXES; WITHDRAWALS FROM PAINFUL STIMULI, BUT DOES NOT FOLLOW COMMANDS. WILL CONTINUE TO ASSESS KEVIN SEDATION SCALE. VITAL HIGH PROTEIN AT GOAL OF 25CC/HR; 10CC RESIDUALS NOTED OF BILE. PT WAS GIVEN LACTULOSE PRN D/T NO BM ALONG WITH DSS WAS INCREASED FROM 100MG TO 250MG. PT HAD A MEDIUM LOOSE/LIQUID BM, UNMEASUREABLE. LUNG SOUNDS REMAIN CLEAR T/O AND DIMINSHED IN BASES. NSR WITH HR 70'S; BP'S STABLE, SEE FLOWSHEET. BILATERAL BOOTS PLACED TO PREVENT FOOT DROP AND PROTECT HEELS. SKIN REMAINS CDI BESIDES ABRASION TO LOWER LIP. PT APPEARS COMFORTABLE AT THIS TIME.
[2020-09-11 05:02] LABS: Hematocrit 40.8 % (37.0-53.0); Hemoglobin 13.4 g/dL (13.5-17.5); Mean Corpuscular HGB 29.8 pg (26.0-34.0); Mean Corpuscular HGB Conc 32.8 g/dL (31.5-36.5); Mean Corpuscular Volume 91 fL (80-100); Mean Platelet Volume 9.8 fL (9.1-12.4); Platelet Count 357 K/mm3 (150-400); RDW Coefficient Variation 13.3 % (11.7-14.2); White Blood Cell Count 12.12 K/mm3 (4.00-11.30)
[2020-09-11 05:28] LABS: Alanine Aminotransfer (ALT/SGP 137 U/L (12-78); Albumin, Blood 2.5 g/dL (3.4-5.0); Albumin/Globulin Ratio 0.6 (0.8-1.8); Alk Phos 121 U/L (50-136); Anion Gap 8 mmol/L (6-16); Aspartate Aminotrans (AST/SGOT 57 U/L (12-37); Bilirubin, Total 1.3 mg/dL (0.1-1.0); Blood Urea Nitrogen 29 mg/dL (8-24); Bun/Creatinine Ratio 43.2 (12.0-20.0); CO2, Blood 26 mmol/L (21-32); Calcium, Blood 8.7 mg/dL (8.5-10.1); Chloride, Blood 106 mmol/L (98-108); Creatinine, Blood 0.67 mg/dL (0.60-1.20); Globulin, Blood 4.4 g/dL (2.2-4.0); Glomerular Filtration Rate >60 (60-); Glucose, Blood 87 mg/dL (70-99); Magnesium, Blood 2.6 mg/dL (1.6-2.4); Phosphorus, Blood 2.6 mg/dL (2.5-4.9); Potassium, Blood 3.6 mmol/L (3.5-5.5); Sodium, Blood 140 mmol/L (136-145); Total Protein, Blood 6.9 g/dL (6.4-8.2)
[2020-09-11 06:21] LABS: BAND PERCENT MAN 4 % (0-8); BASOPHILS ABSOLUTE MAN 0.12 K/mm3 (0.00-0.23); BASOPHILS PERCENT MAN 1 % (0-2); EOSINOPHILS ABSOLUTE MAN 0.24 K/mm3 (0.00-0.68); EOSINOPHILS PERCENT MAN 2 % (0-6); LYMPHOCYTES ABSOLUTE MAN 1.81 K/mm3 (0.84-5.20); LYMPHOCYTES PERCENT MAN 15 % (21-46); METAMYELOCYTE ABSOLUTE MAN 0.36 K/mm3 (0.00-0.00); METAMYELOCYTE PERCENT MAN 3 % (0-0); MONOCYTES ABSOLUTE MAN 0.72 K/mm3 (0.16-1.47); MONOCYTES PERCENT MAN 6 % (4-13); NEUTROPHILS ABSOLUTE MAN 8.84 K/mm3 (1.96-9.15); SEG NEUTROPHILS PERCENT MAN 69 % (41-73); TOTAL CELLS COUNTED 100
--- NOTE | 2020-09-11 06:37 | NUR ---
END OF SHIFT SUMMARY VENT SETTINGS REMAIN UNCHANGED OTHER THAN FIO2 HAS DECREASED DOWN TO 30% WITH GOOD OXYGEN SATURATIONS REMAINING >90%. PT IS PRODUCING MORE SECRETIONS AND SPUTUM; THICK AND WHITE. SPUTUM SAMPLE SENT PER ORDERS. VITAL HIGH PROTEIN REMAINS AT GOAL; 25CC/HR WITH MINIMAL RESIDUALS. PROPOFOL AT 55MCG/KG/MIN WITH PT STILL ABLE TO NOD HEAD YES/NO TO QUESTIONS. LESS MOVEMENT AND FOLLOWING OF COMMANDS THIS SHIFT, EVEN WITH SHORT SEDATION VACATIONS. HOWEVER, UNABLE TO TITRATE DOWN ANY FURTHER D/T PT HAVING CONTINUOUS COUGHING EPISODES; THEREFORE, PROPOFOL TURNED BACK UP TO 55MCG/KG/MIN. REPORT HANDED OFF TO GORGE BRAGG.
--- NOTE | 2020-09-11 07:15 | NUR ---
Assumed care of pt at 0700. Report received from Sherwin PENNINGTON. Pt sedated with propofol at 55 mcg/kg/min. Ventiator settings AC 18/500/8/30%. SpO2 90% or greater. Lungs clear, diminished in bases. Large amount of white sputum suctioned from ETT. OG tube with flushes and continuous feeds per orders. 0 mL residual measured. Per report from offgoing RN, pt had a bowel movement last night. Lu catheter draining taylor urine.
--- NOTE | 2020-09-11 11:21 | NUR ---
SBT Pt currently on open ended breathing trial initiated by RT around 1020. Pt remains on 55 mcg/kg/min at start of breathing trial. Current vent settings PS 10/6 and 30% FiO2. Pt will not be extuabted today. Plan to check BNP and give lasix. Goal to titrate propofol to 40 mcg/kg/min.
--- NOTE | 2020-09-11 13:15 | NUR ---
DR RUIZ IN TO SEE PATIENT Changed ventilator settings to AC 18/500/5/30%. Stated she felt the patient looked like he was getting tired.
--- NOTE | 2020-09-11 16:00 | NUR ---
FAMILY AT BEDSIDE Pt's spouse and two children and bedside. Pt alert, nodding head in response to verbal stimuluation for family. Appears to be understanding what they're saying. When pt gets agitated and coughs continuously, family responds by surrounding patient, caressing him, and continuously providing instructions such as "get those coughs up", "its natural to cough". Education provided that decreasing stimulation may be more beneficial to helping patient relax. Also educated that coughing can be a sign of pain, agitation, or other discomfort.
--- NOTE | 2020-09-11 19:42 | NUR ---
SUMMARY Pt receiving propofol at 40 mcg/kg/min. At this rate, pt is calm/cooperative. Requires occasional IV push fentanyl. Ventilator settings AC 18/500/5/30%. SpO2 90% or greater. SR per monitor. BP stable. Tolerating tube feeds with 0 mL residual measured. No BM this shift, however pt passing flatus with each reposition. Excellent urine output. Febrile for entire shift, not responsive to tylenol, Dr Ovalle aware. Inquired about obtaining blood cultures, no orders given for this, but Dr Ovalle started rocephin for pt. Report given to oncoming RN, Ramos.
--- NOTE | 2020-09-11 20:00 | NUR ---
SHIFT ASSESSMENT ASSUMED CARE OF PT @ 1900, REPORT RECV'D FROM GORGE LEMUS. PT INTUBATED AND SEDATE, RESPONDS TO VERBAL STIMULI, ABLE TO SQUEEZE BOTH HANDS. VENT SETTINGS- 18/500/30%/5 c O2 SATS >90%, LUNG SOUNDS CLEAR. PROPOFOL GTT @ 40MCG/KG/MIN. TEMP BOYKIN CATH PATENT, DRAINING TO GRAVITY. BEDSIDE FAN ON PT, BOYKIN TEMP 100.5. BL SCD'S AND FOOT DROP BOOTS IN PLACE. WILL CONTINUE TO MONITOR.
[2020-09-12 03:54] LABS: Anion Gap 7 mmol/L (6-16); Blood Urea Nitrogen 35 mg/dL (8-24); Bun/Creatinine Ratio 45.9 (12.0-20.0); CO2, Blood 27 mmol/L (21-32); Calcium, Blood 8.3 mg/dL (8.5-10.1); Chloride, Blood 107 mmol/L (98-108); Creatinine, Blood 0.76 mg/dL (0.60-1.20); Glomerular Filtration Rate >60 (60-); Glucose, Blood 90 mg/dL (70-99); Potassium, Blood 3.6 mmol/L (3.5-5.5); Sodium, Blood 141 mmol/L (136-145)
[2020-09-12 05:08] LABS: PCO2 Arterial 36.8 mmHg (35-45); PO2 Arterial 62.7 mmHg (80-100); pH Blood Arterial 7.47 (7.35-7.45)
--- NOTE | 2020-09-12 06:49 | NUR ---
SHIFT SUMMARY PT REMAINS INTUBATED AND SEDATED, NO CHANGES IN SEDATION OR VENT SETTINGS, O2 SATS >95% c MODERATE AMOUNT OF THICK, WHITE SPUTUM SUCTIONED THROUGH ET TUBE. PT ABLE TO FOLLOW SIMPLE COMMANDS. SBT TO BE PERFORMED THIS AM/ AFTERNOON. PT REQUIRED FREQUENT DOSES OF FENTANYL FOR SEDATION. NO OTHER SIGNINFICANT CHANGES, WILL CONTINUE TO MONITOR.
--- NOTE | 2020-09-12 09:14 | NUR ---
CARE ASSUMED OF PT AT 0700. PT SEDATED ON PROPOFOL AT [facility]G [facility]. ON ASSESSMENT PT OPENS EYES AND FOLLOWS SIMPLE COMMANDS. PT NODS HAD NO TO PAIN. DR RUIZ IN UNIT AT 0830. PT PLACED ON SPONT BREATHING TRIAL AT THIS TIME. PROPOFOL STOPPED. PS5/5 ATTEMPTED; PT FELT SOB, W INCREASED RESP RATE 40'S. PS NOW AT 7; PT TOLERATING THIS BETTER. PT VERY AWAKE, ABLE TO GIVE THUMBS UP. PT OVERALL CALM, ABLE TO BE REDIRECTED.
--- NOTE | 2020-09-12 10:42 | NUR ---
PT EXTUBATED AT 1030. SATS 93% ON 6L VIA N/C. BIPAP AT BEDSIDE ON STANBY. RESTRAINTS REMOVED. PT TEARFUL, BUT OVERALL CALM AND COOPERATIVE. PT COUGHING UP THICK SECRETIONS. PT'S UPDATED
--- NOTE | 2020-09-12 13:39 | NUR ---
BIPAP REMOVED AND O2 PLACED VIA N/C AT 4.5L. SATS REMAIN >90%. PT GIVEN BEDSIDE SWALLOW EVAL AND DID WELL ABLE TO TOLERATE SMALL SIPS OF WATER. PT AWAKE VISITING WHOM IS AT BEDSIDE. TYLENOL GIVEN FOR HEADACHE.
--- NOTE | 2020-09-12 16:34 | NUR ---
LUNGS WITH MILD EXP WHEEZES TO BASES; UPDRAFT GIVEN BY RT. I.S. GIVEN; RT IS INSTRUCTING NOW. ONE TIME DOSE OF TORADOL GIVEN FOR HEADACHE 01/23 PT REQUESTED TO AVOID NARCOTICS; TYLENOL DID NOT HELP ENOUGH. PT 93% + ON RA.
--- NOTE | 2020-09-12 22:05 | NUR ---
ASSUMED CARE NOTE: ASSUMED CARE OF PT AT 1900. RECEVIED REPORT FROM YVETTE PENNINGTON. PT IS ALERT AND ORIENTED TO SELF, PLACE AND FOLLOWS COMMANDS. PT IS SLOW TO RESPOND, HOWEVER, IS ANSWERING QUESTIONS APPROPRIATLY. PT IS ON RA WITH SPO2 READING 93% NO RESP DISTRESS NOTED. PT IS IN SINUS RYTHYM WITH HR IN THE 70-80'S. PT IS USING INCENTIVE SPIROMETER AT BEDSIDE. PT C/O WEAKNESS AND BEING UNABLE TO FALL ASLEEP. PT STS " IT HURTS TO COUGH" PT ALSO C/O CONSTIPATION. MEDS GIVEN PER EMAR. BOYKIN PATENT, DRAINING TO GRAVITY. WILL CONTINUE TO MONITOR PT T/O SHIFT.
--- NOTE | 2020-09-13 00:09 | NUR ---
PT ON V60 MACHINE, SETTINGS 12/6, FiO2 60% SPO2 ABOVE 90% PT GIVEN COUGH MEDS PER EMAR
--- NOTE | 2020-09-13 02:05 | NUR ---
PT C/O BEING UNABLE TO SLEEP. ARIAN CALLED, ORDERS FOR ATIVAN GIVEN. PT REPOSITIONED.
--- NOTE | 2020-09-13 05:48 | NUR ---
SHIFT SUMMARY: PT CONTINUES TO BE ALERT AND ORIENTEDX3. PT IS ON 2L OF O2 VIA NC SINCE 0000 DUE TO SPO2 DROPPING TO 88% WITH ACTIVITY. PT C/O OF ANXIETY, BEING UNABLE TO SLEEP. ANXIETY MEDICATION GIVEN PER EMAR. PT HAS BEEN C/O CHEST PAIN , DUE TO COUGH, PAIN MEDS GIVEN PER EMAR. PT IS VERY WEAK, ATTEMPTS TO ASSIST WITH TURNS, HOWEVER BECOMES SOB. PT HAS BEEN IN NSR WITH HR BETWEEN 70-80, BP STABLE. PT WANTS TO ATTEMPT TO GET INTO THE CHAIR THIS AM, WILL RECOMMEND PT/OT SERVICES. BOYKIN PATENT DRAINING ANDERS COLORED URINE, 600ML OUTPUT THIS SHIFT. SCD'S IN PLACE, BED AT LOWEST LEVEL, CALL LIGHT WITHIN REACH.
[2020-09-13 05:50] LABS: BASOPHILS ABSOLUTE AUTO 0.03 K/mm3 (0.00-0.23); BASOPHILS PERCENT AUTO 0 % (0-2); EOSINOPHILS ABSOLUTE AUTO 0.19 K/mm3 (0.00-0.68); EOSINOPHILS PERCENT AUTO 2 % (0-6); Hematocrit 41.1 % (37.0-53.0); Hemoglobin 13.2 g/dL (13.5-17.5); IMMATURE GRAN ABSOLUTE AUTO 0.17 K/mm3 (0.00-0.10); IMMATURE GRAN PERCENT AUTO 2 % (0-1); LYMPHOCYTES ABSOLUTE AUTO 1.36 K/mm3 (0.84-5.20); LYMPHOCYTES PERCENT AUTO 12 % (21-46); MONOCYTES ABSOLUTE AUTO 1.13 K/mm3 (0.16-1.47); MONOCYTES PERCENT AUTO 10 % (4-13); Mean Corpuscular HGB 29.6 pg (26.0-34.0); Mean Corpuscular HGB Conc 32.1 g/dL (31.5-36.5); Mean Corpuscular Volume 92 fL (80-100); Mean Platelet Volume 10.2 fL (9.1-12.4); NEUTROPHILS ABSOLUTE AUTO 8.08 K/mm3 (1.96-9.15); NEUTROPHILS PERCENT AUTO 74 % (41-73); Platelet Count 307 K/mm3 (150-400); RDW Coefficient Variation 13.3 % (11.7-14.2); RDW Standard Deviation 45.1 fL (35.1-46.3); Red Blood Cell Count 4.46 M/mm3 (4.30-5.90); White Blood Cell Count 10.96 K/mm3 (4.00-11.30)
[2020-09-13 06:22] LABS: Alanine Aminotransfer (ALT/SGP 127 U/L (12-78); Albumin, Blood 2.5 g/dL (3.4-5.0); Albumin/Globulin Ratio 0.5 (0.8-1.8); Alk Phos 118 U/L (50-136); Anion Gap 9 mmol/L (6-16); Aspartate Aminotrans (AST/SGOT 55 U/L (12-37); Blood Urea Nitrogen 38 mg/dL (8-24); Bun/Creatinine Ratio 51.6 (12.0-20.0); CO2, Blood 26 mmol/L (21-32); Calcium, Blood 8.4 mg/dL (8.5-10.1); Chloride, Blood 108 mmol/L (98-108); Creatinine, Blood 0.74 mg/dL (0.60-1.20); Globulin, Blood 4.9 g/dL (2.2-4.0); Glomerular Filtration Rate >60 (60-); Glucose, Blood 84 mg/dL (70-99); Potassium, Blood 3.2 mmol/L (3.5-5.5); Sodium, Blood 143 mmol/L (136-145); Total Protein, Blood 7.4 g/dL (6.4-8.2)
--- NOTE | 2020-09-13 09:37 | NUR ---
CARE ASSUMED OF PT AT 0700 THIS AM. PT AWAKE IN BED. DENIES C/O SOB OR PAIN. DOES COMPLAIN OF SOME ANXIETY AND OVERALL WEAKNESS. PT SATS >90% ON RA. LUNGS ARE CLEAR T/O BUT DIMINISHED IN BASES. PT DANGLED AT BEDSIDE THEN SBA W GAIT BELT AND WALKER TO BEDSIDE COMMODE THEN CHAIR. PT ABLE TO BEAR OWN WEIGHT, SLIGHTLY UNSTEADY. NO BM BUT IS PASSING FLATUS; PT BURPING FREQUENTLY. PT DID REQUIRE 2L 02 WHILE ON COMMODE AND FOR TRANSFER TO CHAIR. PT NOW UP IN CHAIR ON RA DOING VERY WELL. DR EMMANUEL IN TO SEE PT. PT/OT ORDERED.
--- NOTE | 2020-09-13 12:34 | NUR ---
PT SBA TO COMMODE FOR LARGE BM. PT STRONGER THAN THIS AM. PT ALSO REQUIRED LESS O2 DURING TRANSITION. PT UP IN CHAIR EATING LUNCH NOW. NO OTHER CHANGES.
--- NOTE | 2020-09-13 15:42 | NUR ---
PHYSICAL THERAPY WORKED W PT. PT IN BED RESTING NOW; VERY TIRED, WOULD LIKE TO TRY AND TAKE A NAP. PT'S TEMP 101.4. BLANKETS REMOVED, COOL CLOTH PLACED, FAN PLACED. VERY FINE CRACKLES TO LEFT LL, CLEAR OTHERWISE. SATS OCCASSIONALLY DROPPED TO 84% AND WOULD COME RIGHT BACK UP TO 92% ON RA; O2 AT 4L VIA N/C PLACED. SATS 98%, WILL DECREASE O2 DOWN TOLERATED.
--- NOTE | 2020-09-13 17:23 | NUR ---
TEMP NOW 99.5. PT WAS A LITTLE OVER EXERTED AFTER P.T. PT BACK ON RA, SATURATIONS >90%. DR RUIZ CALLED AND GIVE FULL UPDATE. MELATONIN ORDERED FOR TONIGHT, EAR PLUGS GIVEN.
--- NOTE | 2020-09-13 19:00 | NUR ---
ASSUMED CARE NOTE: ASSUMED CARE OF PT AT 1900, RECEVIED REPORT FROM MERCEDES PENNINGTON. PT IS ALERT AND ORIENTEDX4. PT IS ON 2L OF O2 VIA NC, SPO2 AT 90% NO RESP DISTRESS NOTED. AT BEDSIDE, ASSISTING WITH CARE. PT HAS BEEN IN SR WITH HR IN THE 70'S PT DENIES ANY CP AT THIS TIME. PT IS ATTEMPTING TO SLEEP, MELATONIN WILL BE GIVEN PER EMAR. PT IS REPOSITIONING SELF, BED AT LOWEST LEVEL, CALL LIGHT WITHIN REACH.
[2020-09-14 05:06] LABS: BASOPHILS ABSOLUTE AUTO 0.03 K/mm3 (0.00-0.23); BASOPHILS PERCENT AUTO 0 % (0-2); EOSINOPHILS ABSOLUTE AUTO 0.21 K/mm3 (0.00-0.68); EOSINOPHILS PERCENT AUTO 2 % (0-6); Hematocrit 39.5 % (37.0-53.0); Hemoglobin 12.8 g/dL (13.5-17.5); IMMATURE GRAN ABSOLUTE AUTO 0.14 K/mm3 (0.00-0.10); IMMATURE GRAN PERCENT AUTO 1 % (0-1); LYMPHOCYTES ABSOLUTE AUTO 1.52 K/mm3 (0.84-5.20); LYMPHOCYTES PERCENT AUTO 14 % (21-46); MONOCYTES ABSOLUTE AUTO 0.91 K/mm3 (0.16-1.47); MONOCYTES PERCENT AUTO 9 % (4-13); Mean Corpuscular HGB 29.9 pg (26.0-34.0); Mean Corpuscular HGB Conc 32.4 g/dL (31.5-36.5); Mean Corpuscular Volume 92 fL (80-100); Mean Platelet Volume 10.3 fL (9.1-12.4); NEUTROPHILS ABSOLUTE AUTO 7.72 K/mm3 (1.96-9.15); NEUTROPHILS PERCENT AUTO 73 % (41-73); Platelet Count 278 K/mm3 (150-400); RDW Coefficient Variation 13.3 % (11.7-14.2); RDW Standard Deviation 44.9 fL (35.1-46.3); Red Blood Cell Count 4.28 M/mm3 (4.30-5.90); White Blood Cell Count 10.53 K/mm3 (4.00-11.30)
[2020-09-14 05:28] LABS: Alanine Aminotransfer (ALT/SGP 153 U/L (12-78); Albumin, Blood 2.6 g/dL (3.4-5.0); Albumin/Globulin Ratio 0.6 (0.8-1.8); Alk Phos 120 U/L (50-136); Anion Gap 5 mmol/L (6-16); Aspartate Aminotrans (AST/SGOT 61 U/L (12-37); Bilirubin, Total 1.7 mg/dL (0.1-1.0); Blood Urea Nitrogen 36 mg/dL (8-24); Bun/Creatinine Ratio 49.2 (12.0-20.0); CO2, Blood 28 mmol/L (21-32); Calcium, Blood 8.6 mg/dL (8.5-10.1); Chloride, Blood 108 mmol/L (98-108); Creatinine, Blood 0.73 mg/dL (0.60-1.20); Globulin, Blood 4.7 g/dL (2.2-4.0); Glomerular Filtration Rate >60 (60-); Glucose, Blood 92 mg/dL (70-99); Potassium, Blood 3.5 mmol/L (3.5-5.5); Sodium, Blood 141 mmol/L (136-145); Total Protein, Blood 7.3 g/dL (6.4-8.2)
--- NOTE | 2020-09-14 06:52 | NUR ---
SHIFT SUMMARY: NO SIGNIFICANT CHANGES T/O SHIFT, PT CONTINUES TO BE ALERT AND ORIENTEDX3, PT HAS BEEN ON RA-2L OF 02 VIA SPO2 ABOVE 90% PT HAS BEEN HAVING A PRODUCTIVE COUGH. PT HAS BEEN IN SINUS RYTHYM WITH HR IN THE 70'S, BP STABLE. PT HAS BEEN USING URINAL A BEDSIDE, REMAINED AT BEDSIDE ASSISTING PATINET WILL ALL CARE. CALL LIGHT WITHIN REACH.
--- NOTE | 2020-09-14 17:45 | NUR ---
SHIFT SUMMARY NO ACUTE EVENTS THIS SHIFT. PATIENT ALERT AND ORIENTED, COOPERATIVE WITH CARE. WORKED WITH PT/OT TODAY, WILL DROP TO MID-HIGH 80S O2 SATURATION WITH AMBULATION BUT WILL QUICKLY RETURN TO 90S AT REST. PATIENT ON ROOM AIR TO 1 L NASAL CANNULA PRN WITH ACTIVITY. BP/HR WNL, NSR AT STRIP READING THIS MORNING. PATIENT'S SPOUSE REMAINS AT BEDSIDE THIS SHIFT, SPOUSE ASSISTS PATIENT APPROPRIATELY AND ASSISTS IN ANXIETY MANAGEMENT.
--- NOTE | 2020-09-14 20:12 | NUR ---
ASSESSMENT/ASSUMED CARE PT SITTING UP IN BED TALKING WITH WHO IS AT BEDSIDE. DENIES PAIN OR DISCOMFORT. LUNGS CLEAR ON ROOMAIR. RESP EVEN AND NONLABORED. SPO2 93%. HEART RATE REGULAR. BP STABLE. BT+ ABD SOFT NONTENDER. IV PICC LINE TO RIGHT UPPER ARM. DRSG CHANGED, SITE CLEAR. PT STATES,"I FEEL SO MUCH BETTER".
[2020-09-15 04:42] LABS: Anion Gap 7 mmol/L (6-16); Blood Urea Nitrogen 29 mg/dL (8-24); Bun/Creatinine Ratio 40.6 (12.0-20.0); CO2, Blood 26 mmol/L (21-32); Calcium, Blood 8.5 mg/dL (8.5-10.1); Chloride, Blood 109 mmol/L (98-108); Creatinine, Blood 0.72 mg/dL (0.60-1.20); Glomerular Filtration Rate >60 (60-); Glucose, Blood 86 mg/dL (70-99); Potassium, Blood 3.1 mmol/L (3.5-5.5); Sodium, Blood 142 mmol/L (136-145)
--- NOTE | 2020-09-15 06:35 | NUR ---
SHIFT SUMMARY PT SLEPT "GOOD" DURING THE NIGHT. UP IN ROOM NOW WITH ASSISTING. VSS. PT USING WALKER WHILE UP AMB IN ROOM. DENIES PAIN OR DISCOMFORT. NO ACUTE CHANGE. REPORT TO ON COMING NURSE
[2020-09-15] MEDS ORDERED: XARELTO20 MG PO (10:06)
--- NOTE | 2020-09-15 12:51 | NUR ---
DISCHARGE INSTRUCTIONS GONE OVER WITH PT AND FAMILY. INSTRUCTED ON NEW MEDICATION AND WHERE TO HYDROELECTRIC COMPONENT MACHINIST. PT AND FAMILY REPORTED THAT KATHLEEN ANSWERED ALL QUESTIONS REGARDING HOME O2. BELONGINGS GATHERED AND TRANSPORTED WITH PT. PT ESCORTED OUT VIA WHEELCHAIR BY RN TO AWAITING RIDE.
== END 2020-09-15 12:45 | disposition home or self-care (01) | DRG 207 ==
LOC: ER 10:01 → ICUW 12:54 → PCU 12:54 → ICUW 09-04 13:28
PROVIDERS: Emergency Medicine; Family Medicine; Internal Medicine; Internal Medicine Critical Care Medicine; Internal Medicine Pulmonary Disease; Nurse Practitioner Acute Care; ADMIT Hospitalist
PROC: XW033E5 Introduction of Remdesivir Anti-infective into Peripheral Vein, Percutaneous Approach, New Technology Group 5 (ICD-10-PCS; 2020-09-03)
PROC: 02HV33Z Insertion of Infusion Device into Superior Vena Cava, Percutaneous Approach (ICD-10-PCS; principal; 2020-09-04)
PROC: XW033E5 Introduction of Remdesivir Anti-infective into Peripheral Vein, Percutaneous Approach, New Technology Group 5 (ICD-10-PCS; 2020-09-04)
PROC: 5A1955Z Respiratory Ventilation, Greater than 96 Consecutive Hours (ICD-10-PCS; 2020-09-04)
PROC: 0BH18EZ Insertion of Endotracheal Airway into Trachea, Via Natural or Artificial Opening Endoscopic (ICD-10-PCS; 2020-09-04)
PROC: XW033E5 Introduction of Remdesivir Anti-infective into Peripheral Vein, Percutaneous Approach, New Technology Group 5 (ICD-10-PCS; 2020-09-05)
PROC: XW033E5 Introduction of Remdesivir Anti-infective into Peripheral Vein, Percutaneous Approach, New Technology Group 5 (ICD-10-PCS; 2020-09-06)
PROC: XW033E5 Introduction of Remdesivir Anti-infective into Peripheral Vein, Percutaneous Approach, New Technology Group 5 (ICD-10-PCS; 2020-09-07)
DX: U07.1 COVID-19 (principal); J96.01 Acute respiratory failure with hypoxia; J12.82 Pneumonia due to coronavirus disease 2019; Z68.41 Body mass index [BMI] 40.0-44.9, adult; E66.01 Morbid (severe) obesity due to excess calories; I10 Essential (primary) hypertension; E78.00 Pure hypercholesterolemia, unspecified; E87.6 Hypokalemia; Z78.1 Physical restraint status
CPT/HCPCS: 31500; 36415; 36569; 36600; 51702; 71045; 80048; 80053; 80069; 81001; 82248; 82330; 82803; 82947; 83735; 83880; 84100; 84145; 84484; 85025; 85027; 85379; 86140; 87070; 87205; 93005; 93010; 94002; 94003; 94640; 94660; 94667; 94761; 94762; 96365; 96366; 96375; 97110; 97116; 97162; 97165; 97530; 99285-25; A9270; C1751; C9113; J0696; J1100; J1650; J1885; J1940; J2060; J2250; J2405; J2704; J3010; J3411; J7030; J7050; J7060; P9046

== ENCOUNTER → 2022-09-29 | Outpatient (CLI) | payer BC ==
[~2022-09-29] MED LIST changes: +XARELTO20 MG PO
[2022-09-29 16:49] LABS: BASOPHILS ABSOLUTE AUTO 0.03 K/mm3 (0.00-0.23); BASOPHILS PERCENT AUTO 0 % (0-2); EOSINOPHILS ABSOLUTE AUTO 0.22 K/mm3 (0.00-0.68); EOSINOPHILS PERCENT AUTO 3 % (0-6); Hemoglobin 15.6 g/dL (13.5-17.5); IMMATURE GRAN ABSOLUTE AUTO 0.01 K/mm3 (0.00-0.10); IMMATURE GRAN PERCENT AUTO 0 % (0-1); LYMPHOCYTES ABSOLUTE AUTO 2.11 K/mm3 (0.84-5.20); LYMPHOCYTES PERCENT AUTO 31 % (21-46); MONOCYTES ABSOLUTE AUTO 0.67 K/mm3 (0.16-1.47); MONOCYTES PERCENT AUTO 10 % (4-13); Mean Corpuscular HGB 28.8 pg (26.0-34.0); Mean Corpuscular HGB Conc 32.5 g/dL (31.5-36.5); Mean Corpuscular Volume 89 fL (80-100); Mean Platelet Volume 10.4 fL (9.1-12.4); NEUTROPHILS ABSOLUTE AUTO 3.74 K/mm3 (1.96-9.15); NEUTROPHILS PERCENT AUTO 55 % (41-73); Platelet Count 263 K/mm3 (150-400); RDW Coefficient Variation 13.2 % (11.7-14.2); RDW Standard Deviation 42.6 fL (35.1-46.3); Red Blood Cell Count 5.41 M/mm3 (4.30-5.90); White Blood Cell Count 6.78 K/mm3 (4.00-11.30)
[2022-09-29 17:37] LABS: Alanine Aminotransfer (ALT/SGP 69 U/L (12-78); Albumin, Blood 4.1 g/dL (3.4-5.0); Albumin/Globulin Ratio 0.9 (0.8-1.8); Alk Phos 129 U/L (50-136); Anion Gap 6 mmol/L (6-16); Aspartate Aminotrans (AST/SGOT 33 U/L (12-37); Bilirubin, Total 1.6 mg/dL (0.1-1.0); Blood Urea Nitrogen 18 mg/dL (8-24); CHOL/HDL RATIO 4.1; CO2, Blood 25 mmol/L (21-32); Calcium, Blood 9.2 mg/dL (8.5-10.1); Chloride, Blood 106 mmol/L (98-108); Cholesterol 230 mg/dL (50-200); Globulin, Blood 4.4 g/dL (2.2-4.0); Glomerular Filtration Rate 104 (60-); Glucose, Blood 85 mg/dL (70-99); HDL Cholesterol 56 mg/dL (>39); LDL/HDL RATIO 2.8; Low Density Lipoprotein Chol 156 mg/dL (0-110); Potassium, Blood 3.7 mmol/L (3.5-5.5); Sodium, Blood 137 mmol/L (136-145); Total Protein, Blood 8.5 g/dL (6.4-8.2); Triglycerides 88 mg/dL (30-160); Very Low Density Lipoprot Chol 17 mg/dL (6-32)
== END | disposition home or self-care (01) ==
LOC: LAB 15:25 → LAB SHORT 15:25
PROVIDERS: Nurse Practitioner Family
DX: I10 Essential (primary) hypertension (principal)
CPT/HCPCS: 80053; 80061; 82043; 85025